=== PATIENT | female | born 1970 | race Two or more races ===

== ENCOUNTER 2024-04-22 10:19 | Outpatient (RCR) | payer MEDICAID, SELFPAY | END 2024-05-07 23:59 | disposition home or self-care (01) | LOC: SCTC 10:19 | PROVIDERS: PCP Physician Assistant; Referring Provider Physician Assistant; Visit Provider Nurse Practitioner Family | DX: D69.6 Thrombocytopenia, unspecified (principal); Z90.81 Acquired absence of spleen; Z86.19 Personal history of other infectious and parasitic diseases | CPT/HCPCS: 99212; G0463 ==

== ENCOUNTER → 2024-05-03 | Outpatient (CLI) | payer MEDICAID, SELFPAY ==
--- NOTE | 2024-05-03 09:00 | XR_ITS ---
Examination: Screening digital mammography, bilateral Computer aided detection 3-D breast Tomosynthesis, bilateral Date and time of exam: May 03, 2024 0913 hours No priors Indication: Screening Technique: Nonmagnified MLO, CC views of the breasts to been obtained, reconstructed from 3-D Tomosynthesis images. R2 computer aided detection program utilized for evaluation of suspicious masses and/or abnormal calcifications. 3-D Tomosynthesis images obtained. Findings: The breasts are heterogeneously dense, which may obscure small masses Benign calcifications No suspicious masses Impression: BI-RADS category II: Benign Findings. Recommend 1 year follow-up mammogram.
== END | disposition home or self-care (01) ==
LOC: CDIM 08:57
PROVIDERS: Referring Provider Specialist; Visit Provider Physician Assistant
DX: Z12.31 Encounter for screening mammogram for malignant neoplasm of breast (principal); R92.323 Mammographic fibroglandular density, bilateral breasts; R92.1 Mammographic calcification found on diagnostic imaging of breast
CPT/HCPCS: 77063; 77067

== ENCOUNTER 2024-06-02 05:27 | Emergency (ER) | payer MEDICAID, SELFPAY ==
[2024-06-02 05:30] VITALS: PULSE 104; RESP 18; O2SAT 99; BMI 18.8
[2024-06-02 05:37] VITALS: BP 107/64; PULSE 90; RESP 18; TEMP 36.9; O2SAT 97
--- NOTE | 2024-06-02 06:20 | XR_ITS ---
Examination: CT brain head without contrast. 2-D sagittal coronal reconstructions Date and time of exam:June 02, 2024 at 0632 hrs. Comparison November 02, 2022 Indications: Onset headache dizziness beginning last night CTDI: vol (mGy):42.6 DLP: (mGycm):835 Technique: Multiple CT axial sections of the brain have been obtained, 5 mm slice thickness. Contrast has not been administered. 2-D sagittal, coronal reconstructions have been obtained Low dose protocols were performed. One or more of the following dose reduction techniques were used; automated exposure control, adjustment of the mA and/or KV according to patient size, use of iterative reconstruction technique. Findings: No significant ventricular enlargement. Intra-axial or extra-axial hemorrhage density is not seen. No mass effect or midline shift Basal cisterns are not remarkable. Fourth ventricle is midline. Cranial vault intact. Impression: Negative for acute hemorrhage, mass effect or midline shift Advise clinical correlation follow-up accordingly
--- NOTE | 2024-06-02 06:21 | XR_ITS ---
Examination: PA lateral chest 2 views Technique: Upright PA lateral chest 2 views Exam date and time: June 02, 2024 0655 hrs. Comparison October 20, 2022 Indications: Chest pain today. Findings: Moderate hyperexpansion. Normal heart size No pneumonia or pulmonary edema Impression: COPD No pneumonia or pulmonary edema
--- NOTE | 2024-06-02 06:21 | PD.EDRME ---
Rapid Medical Screening Exam RME Arrival date/time: 06/02/24 05:27 53-year-old female presents emergency department complains of headache dizziness and chest pain Chief Complaint: Headache Vital signs: Vital Signs Temperature 98.4 F 06/02/24 05:37 Pulse Rate 90 06/02/24 05:37 Respiratory Rate 18 06/02/24 05:37 Blood Pressure 107/64 06/02/24 05:37 Pulse Oximetry (%) 97 06/02/24 05:37 Oxygen Delivery Method Room Air 06/02/24 05:37
[2024-06-02 07:29] LABS: Basophils % (Auto) 1 % (0-2.5); Eosinophils % (Auto) 0 % (0-10); Hematocrit 37.3 % (36.0-46.0); Hemoglobin 12.7 g/dL (12.0-16.0); Immature Granulocytes % (Auto) 0 % (0-0); Immature Granulocytes Auto 0.02 Thou/mm3 (0.00-0.00); Lymphocytes # (Auto) 1.7 Thou/mm3 (1.0-4.8); Lymphocytes % (Auto) 26 % (10-50); Mean Corpuscular Hemoglobin 30.9 pg (25.0-35.0); Mean Corpuscular Volume 91 fL (80-100); Monocytes # (Auto) 0.4 Thou/mm3 (0.0-0.8); Monocytes % (Auto) 6 % (0-12); Neutrophils # (Auto) 4.3 Thou/mm3 (1.8-7.7); Neutrophils % (Auto) 67 % (37-80); Nucleated Red Blood Cell % 0 /100 WBC (0); RDW Standard Deviation 42.3 fL (36.4-46.3); Red Blood Count 4.11 Miln/mm3 (4.00-5.20); White Blood Count 6.4 Thou/mm3 (3.6-11.0)
--- NOTE | 2024-06-02 07:32 | PC.NURSE ---
Patient reports to ED with c/o Headache that worsened after taking THC edible x. Per patient feels I cant turn my mind off, I keep thinking so much . Per patient took edible to see if it would help relax her to get rest. Per patient has insomnia and has had issues with lack of sleeping due to not being able to shut her mind off once she lays to bed. Patient is alert and oriented, able to ambulate without assistance and speaks kazakh. Patient and spouse updated with plan of care and call light within reach.
[2024-06-02 07:36] LABS: Platelet Count 57 Thou/mm3 (140-440)
[2024-06-02 07:46] LABS: B-Type Natriuretic Peptide < 20 pg/mL (0-100)
[2024-06-02 07:54] LABS: Albumin/Globulin Ratio 1.9 (1.2-2.2); Alkaline Phosphatase 41 U/L (46-116); Anion Gap 8 (7-16); Aspartate Amino Transferase 13 U/L (0-34); BUN/Creatinine Ratio 18 Ratio (12-20); Bilirubin,Total 0.4 mg/dL (0.3-1.2); Blood Urea Nitrogen 16 mg/dL (9-23); Calcium 9.8 mg/dL (8.3-10.6); Calcium (Corrected) 9.8 mg/dL (8.5-10.1); Carbon Dioxide 25.2 mMol/L (20.0-31.0); Chloride 107 mMol/L (98-107); Creatinine (Component) 0.9 mg/dL (0.6-1.3); Estimated Creatinine Clearance 56.9 mL/min (>60); Globulin 2.7 gm/dL (2.3-3.5); Glucose 114 mg/dL (74-106); Osmolality,Calculated 281 (275-295); Potassium 3.6 mMol/L (3.4-5.1); Sodium 140 mMol/L (136-145); Total Protein 7.7 gm/dL (5.7-8.2); Troponin I < 0.002 ng/mL (0.0-0.045); eGFR > 60 See Note
[2024-06-02 07:58] LABS: Alanine Aminotransferase 11 U/L (10-49)
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
[2024-06-02 08:33] LABS: Slide Review Platelets confirmed
[2024-06-02 09:00] LABS: INR 1.1 (0.9-1.3); Partial Thromboplastin Time 26.3 Seconds (22.0-36.0); Prothrombin Time 11.5 Seconds (9.0-12.2)
== END 2024-06-02 09:07 | disposition home or self-care (01) ==
PROVIDERS: Nurse Practitioner Primary Care; Emergency Provider Emergency Medicine; PCP Physician Assistant
DX: G40.919 Epilepsy, unspecified, intractable, without status epilepticus (principal); D69.6 Thrombocytopenia, unspecified; F51.04 Psychophysiologic insomnia; R51.9 Headache, unspecified; R42 Dizziness and giddiness; J44.9 Chronic obstructive pulmonary disease, unspecified; R94.31 Abnormal electrocardiogram [ECG] [EKG]; Z85.6 Personal history of leukemia
CPT/HCPCS: 36415; 70450; 71046; 80053; 80307; 81001; 81025; 83735; 83880; 84484; 85025; 85610; 85730; 93005; 99284

== ENCOUNTER 2024-07-02 11:22 | Outpatient (RCR) | payer MEDICAID, SELFPAY ==
--- NOTE | 2024-07-08 09:44 | CTCFLWUP_ITS ---
Patient: DESEAN FARIAS : 1970 Page 3 of 4 FOLLOW UP NOTE DATE OF SERVICE: 07/02/2024 NAME: DESEAN FARIAS ACCOUNT: [id number] : 1970 AGE: 53 INTERVAL HISTORY: Patient in for follow-up for thrombocytopenia. Patient taking Promacta 25 mg daily, refilled by PCP. No bleeding or bruising. 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 HISTORY OF PRESENT ILLNESS: PREVIOUS NOTE: Desean Whittaker, is a 53-year-old Citizen Of [place]- speaking female. Patient reports history of thrombocytopenia. Patient is taking Promacta, refilled by PCP, prior to that last refill was about a year and a half before. Patient is a poor historian. Patient reports that she saw Dr. Patterson, brass burnisher previously, we have not received records. Patient also reports she saw a different brass burnisher prior to that in [facility], does not have contact information, was told that prednisone refill was not indicated. Patient denies any bleeding concerns. Patient reports possible history of unknown type of hepatitis. 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 Total hysterectomy due to heavy menses. 02/18/2014: Platelets 32,000, hemoglobin 14.5, MCV 97, ANC 8.0, WBC 9.9 05/14/2014: Platelets 29,000, hemoglobin 14.0, MCV 92, ANC 9.4, WBC 11.8 06/21/2023: Platelets 57,000, hemoglobin 12.2, hematocrit 37.1, MCV 95, ANC 2.8, WBC 5.8 08/30/2023: Platelets with 75,000, hemoglobin 13.2, MCV 95, ANC 3.6, WBC 6.3, AST 20 ALT 12, alk phos 34, T. bili 0.4 11/13/2023: Platelets 46,000, hemoglobin 13.3, MCV 96, ANC 4.1, WBC 7.0 01/09/2024: Platelets 58,000, hemoglobin 13.5, MCV 97, ANC 2.4, WBC 5.7 OTHER MEDICAL HISTORY/CONDITIONS: Thrombocytopenia Epiliepsy follows up with neurology RA, following up with Dr. Schuster Splenectomy - 9 yrs old [place]; Oscar oophorectomy - 6 yrs ago FAMILY HISTORY: Mother:?Thyroid Patient?denies?family?cancer?history. SOCIAL HISTORY: Occupational?History:?Disabled Education?Level:?Completed High School Marital?Status:? Tobacco?Use:?Denies ETOH?Use:?Denies Drug?Note:?Denies Social?History?Note:?Lives?with?dtr [employer] PRACTITIONER HISTORY: Menarche?-?Age:?10 :?3 Live?Births:?3 Age?1st?:?20 MEDICATIONS: 1. Calcium + D - 600 mg(1,500mg) -200 unit 1 Capsule Daily 2. clonazePAM - 2 mg 1 tab Every day before sleep 3. Keppra - 1,000 mg 1 tab Twice a Day 4. [place] 3 - [id number] mg 1 Capsule Daily 5. Promacta - 25 mg 1 tab Daily 6. topiramate - 100 mg 1 tab Twice a Day Medications Last Reconciled by Linda Avina MA on 07/02/2024 ALLERGIES: Penicillins REVIEW OF SYSTEMS: A complete 14-point review of systems was performed and is negative except as noted in interval history. PHYSICAL EXAMINATION: VITAL SIGNS: Temperature?98.1, B/P?114/64, Oxygen?Saturation?99% Weight?106.6?lbs PAIN: 0 - No pain GENERAL APPEARANCE: Appears well, in no apparent distress, appropriately interactive. HEENT: Normocephalic, no temporal wasting, normal conjunctiva, no scleral icterus, normal hearing, lips without lesions, neck normal range of motion. CARDIOVASCULAR: Not assessed. PULMONARY: Normal respiratory effort, no respiratory distress or use of accessory muscles, speaking in full sentences, no tachypnea. EXTREMITIES: No cyanosis. SKIN: Normal skin appearance. NEUROLOGIC: Alert and oriented x4. PSHYCHIATRIC: Appropriate affect, mood normal, behavior normal, intact thought and speech. LABORATORY DATA: I have personally reviewed and interpreted each of the patient?s relevant lab tests, abnormal findings are below: Date 06/02/24 ??GLUCOSE,RANDOM?(mg/dL) 114?H ??BLOOD?UREA?NITROGEN?(mg/dL) 16 ??CREATININE?(mg/dL) 0.90 ??SODIUM?(mmol/L) 140 ??POTASSIUM?(mmol/L) 3.6 ??CHLORIDE?(mmol/L) 107 ??CrCl?(CandG)?(ml/min) 56.94 ??AST/SGOT?(Unit/L) 13 ??ALT/SGPT?(Unit/L) 11 ??ALKALINE?PHOSPHATASE?(Unit/L) 41?L ??BILIRUBIN,?TOTAL?(mg/dL) 0.4 ??PROTEIN?TOTAL?(gm/dl) 7.7 ??ALBUMIN,?SERUM?(gm/dl) 5.0 ??GLOBULIN?(gm/dl) 2.7 ??ALBUMIN/GLOBULIN?RATIO 1.9 ??CALCIUM,?SERUM?(mg/dL) 9.8 ??CALCIUM?SERUM?(CORRECTED)?(mg/dL) 9.8 ASSESSMENT/PLAN: 1 thrombocytopenia, likely ITP. Hx of promacta use and last dose on 09/14/2023. Patient is asymptomatic, denies any bleeding concerns HCV antibody, reports history of hepatitis C but no active infection Reports splenectomy at the age of 89 years old. Ultrasound of abdomen showed absent spleen, liver normal size no liver lesions, 11/24/2023. Will refer for follow up with hematology benign Dr Arcelia Her No indication for promacta at this time CBC CMP prior to follow-up ORDERS: Cbc,cmp referrel to heme RETURN TO CLINIC: 6 months BILLING AND COMPLIANCE: I reviewed external records from providers outside my specialty as summarized above. I spent a total of 50 minutes on this patient?s care on the day of their visit excluding time spent related to any billed procedures. This time includes time spent with the patient as well as time spent documenting in the medical record, reviewing patients records and tests, obtaining history, placing orders, communicating with other healthcare professionals, counseling the patient, family or caregiver, and/or care coordination for the diagnoses above. Electronically Signed by: Quinn Mcgarry MD T: 9:42 AM CC: PCP: Juan Baker Referring: Juan Baker This document was completed utilizing speech recognition software. Grammatical errors, random word insertions, pronoun errors, and incomplete sentences are an occasional consequence of this system due to software limitations, ambient noise, and hardware issues. Any formal questions or concerns about the content, text or information contained within the body of this dictation should be directly addressed to the provider for clarification.
== END 2024-07-05 23:59 | disposition home or self-care (01) ==
LOC: SCTC 11:22
PROVIDERS: PCP Physician Assistant; Referring Provider Physician Assistant; Visit Provider Internal Medicine Hematology & Oncology
DX: D69.6 Thrombocytopenia, unspecified (principal); Z86.19 Personal history of other infectious and parasitic diseases
CPT/HCPCS: 99213; G0463

== ENCOUNTER → 2024-08-13 | Outpatient (CLI) | payer MEDICAID, SELFPAY ==
--- NOTE | 2024-08-13 14:20 | XR_ITS ---
Examination: Bone densitometry Date and time of exam:August 13, 2024 at 1501 hrs. Indications: Throat knee 843, personal history osteoporosis Technique: Lumbar spine and hip total bone mineralization values of an calculated. Peak reference and age match control results have been displayed. Findings: Lumbar spine total bone mineralization is0.677 gm/cm2. This is 3.4 standard deviations below peak reference. This is 2.4 standard deviations below age-matched controls. Hip total bone mineralization is 0.731 gm/cm2 This is 1.7 standard deviations below peak reference. This is 1 standard deviations below age-matched controls Impression: There is osteoporosis based on lumbar spine measurements. There is osteopenia based on hip measurements Lumbar mineralization is increase 10.1% compared with 01/31/2018 Hip mineralization is increased 9.9% compared with January 31, 2018
== END | disposition home or self-care (01) ==
LOC: CDIM 14:26
PROVIDERS: Referring Provider Internal Medicine Hematology & Oncology; Visit Provider Internal Medicine Hematology & Oncology
DX: M81.0 Age-related osteoporosis without current pathological fracture (principal); M85.89 Other specified disorders of bone density and structure, multiple sites
CPT/HCPCS: 77080

== ENCOUNTER 2024-10-01 11:18 | Outpatient (RCR) | payer MEDICAID, SELFPAY | END 2024-10-05 23:59 | disposition home or self-care (01) | LOC: SCTC 11:18 | PROVIDERS: PCP Physician Assistant; Referring Provider Nurse Practitioner Family; Visit Provider Nurse Practitioner Family | DX: D69.6 Thrombocytopenia, unspecified (principal); M81.0 Age-related osteoporosis without current pathological fracture; Z86.19 Personal history of other infectious and parasitic diseases; Z90.81 Acquired absence of spleen | CPT/HCPCS: 99212; G0463 ==

== ENCOUNTER 2024-11-29 12:48 | Emergency (ER) | payer MEDICAID, SELFPAY ==
[2024-11-29 13:00] VITALS: BP 111/73; PULSE 73; RESP 16; TEMP 36.9; O2SAT 98; BMI 19.7
--- NOTE | 2024-11-29 13:27 | PD.EDEAR ---
ED Ear RME/HPI General Chief complaint: Ear Stated complaint: Ear ringing X 3 months Time Seen by Provider: 11/29/24 12:51 Source: patient Arrival date/time: 11/29/24 12:48 54-year-old female with no known medical history presents to the emergency room with a chief complaint of ringing in her ear x 2 years but has progressively gotten worse in the last 3 months Mode of arrival: ambulatory Limitations: no limitations Related Data Home Medications ?Medication ?Instructions ?Recorded ?Confirmed levetiracetam 500 mg tablet 2,000 mg PO BID Seizures #0 tabs 09/01/14 09/25/22 (Keppra) alendronate 70 mg tablet 70 mg PO QWEEK 09/21/22 09/25/22 cenobamate 12.5 mg (14)-25 mg (14) 1 tab PO QDAY Seizures 09/25/22 09/25/22 tablets in a dose pack Previous Rx's ?Medication ?Instructions ?Recorded diazepam 5 mg/spray (0.1 mL) nasal 5 mg (0.1 mL) intranasal QDAY PRN 09/22/22 spray (Valtoco) seizures #2 sprays polyethylene glycol 3350 17 gram 17 g PO QDAY #30 ea 09/27/22 oral powder packet (Miralax) ofloxacin 0.3 % ear drops 10 drp otic (ear) QDAY 7 days #5 mL 11/29/24 Allergies Allergy/AdvReac Type Severity Reaction Status Date / Time Penicillins Allergy Severe HIVES, Verified 11/29/24 12:52 SEIZURES Review of Systems Review of Systems Systems Reviewed: All systems reviewed, normal except as documented Constitutional Constitutional: Reports system reviewed and no additional complaints, except as documented, Denies fatigue, Denies fever(s), Denies headache(s) and Denies weakness Eyes Eyes: Reports system reviewed and no additional complaints, except as documented, Denies blurry vision and Denies change in vision ENT Ears, Nose, Mouth, and Throat: Reports system reviewed and no additional complaints, except as documented, Denies otalgia, Denies headache(s), Denies nasal congestion, Denies throat swelling, Reports tinnitus and Denies vertigo Cardiovascular Cardiovascular: Reports system reviewed and no additional complaints, except as documented, Denies chest pain, Denies dyspnea and Denies dyspnea on exertion Respiratory Respiratory: Reports system reviewed and no additional complaints, except as documented, Denies chest congestion, Denies cough, Denies dyspnea, Denies dyspnea on exertion and Denies wheezing Gastrointestinal Gastrointestinal: Reports system reviewed and no additional complaints, except as documented, Denies abdominal pain, Denies cramping, Denies nausea and Denies vomiting Genitourinary Genitourinary: Reports system reviewed and no additional complaints, except as documented Musculoskeletal Musculoskeletal: Reports system reviewed and no additional complaints, except as documented and Denies back pain Integumentary/Breasts Skin/Breast: Reports system reviewed and no additional complaints, except as documented and Denies wounds Neurologic Neurologic: Reports system reviewed and no additional complaints, except as documented, Denies confusion, Denies headache(s), Denies lack of coordination, Denies vertigo and Denies weakness Psychiatric Psychiatric: Reports system reviewed and no additional complaints, except as documented, Denies anxiety, Denies confusion, Denies depression, Denies paranoia, Denies suicidal ideation and Denies tactile hallucinations Endocrine Endocrine: Reports system reviewed and no additional complaints, except as documented and Denies fatigue Hematologic/Lymphatic Hematologic/Lymphatic: Reports system reviewed and no additional complaints, except as documented and Denies lymphadenopathy Allergic/Immunologic Allergic/Immunologic: Reports system reviewed and no additional complaints, except as documented, Denies throat swelling, Denies urticaria and Denies wheezing Past Medical History Past Medical History NEUROLOGIC: Positive Neurological Disorders, Seizures and Epilepsy CARDIAC: Positive Hypertension; Negative Cardiac Disorders or Congestive Heart Failure RESPIRATORY: Negative Chronic Obstructive Pulmonary Disease (COPD) or Asthma GASTROINTESTINAL: Positive Gastrointestinal Disorders GENITOURINARY: Negative Renal Disease ENDOCRINE: Negative Diabetes Mellitus Type 1 or Diabetes Mellitus Type 2 HEMATOLOGIC: Positive Blood Disorders; Negative Sickle Cell Disease PSYCHO/SOCIAL: Positive Psychiatric Problems, Depression and Anxiety OTHER HISTORY: Positive Hospitalization, Falls and Blood Transfusions Surgical History SURGICAL: Positive Abdominal Surgery, Hysterectomy and Section Social History SMOKING STATUS: Never smoker SUBSTANCE USE: does not use ED Exam General Limitations: Present no limitations General appearance: Present alert and in no apparent distress Head Head exam: Present atraumatic Eye Eye exam: Present normal appearance, PERRL and EOMI ENT ENT exam: Present normal exam, normal oropharynx, mucous membranes moist, TM's normal bilaterally and normal external ear exam Expanded ENT Exam External ear exam: Present normal external inspection TM/Canal exam: Right TM: erythema Mouth exam: Present normal external inspection Teeth exam: Present normal inspection Neck Neck exam: Present normal inspection, full ROM and trachea midline Chest Chest inspection: Present normal inspection and symmetric chest wall rise Respiratory Respiratory exam: Present normal lung sounds bilaterally Cardiovascular Cardiovascular exam: Present regular rate, normal rhythm and normal heart sounds Abdominal Exam Abdominal exam: Present soft and normal bowel sounds Extremities Exam Extremities exam: Present normal inspection and full ROM Back Exam Back exam: Present normal inspection and full ROM Neurological Exam Neurological exam: Present alert, oriented X3 and CN II-XII intact Psychiatric Psychiatric exam: Present normal affect and normal mood Skin Skin exam: Present warm, dry, intact and normal color Course Quality Measures none Vital Signs Vital signs: Vital Signs Temperature 98.5 F 11/29/24 13:00 Pulse Rate 73 11/29/24 13:00 Respiratory Rate 16 11/29/24 13:00 Blood Pressure 111/73 11/29/24 13:00 Pulse Oximetry (%) 98 11/29/24 13:00 Oxygen Delivery Method Room Air 11/29/24 13:00 Ear MDM Narrative MDM Narrative:: 54-year-old female with no known medical history presents to the emergency room with a chief complaint of ringing in her ear x 2 years but has progressively gotten worse in the last 3 months Patient is hemodynamically stable and in no apparent distress. Patient denies any discharge from her ear any tenderness to her ear. Patient attributes this tendinitis due to her menopause as she says this started around that time. ENT examination shows some mild erythema to the right tympanic membrane but it is not bulging. Left-sided tympanic membrane is within normal limits. Patient states this has been going on for the last 2 years but has progressively gotten worse in the last 3 months. I sent the patient home with some antibiotics and gave her strict return precautions if she begins to have a headache or any focal deficits. Patient denies any headache any confusion any numbness to the face or any other symptoms. The patient was a GCS of 15 she is alert and oriented x 3 pupils are PERRLA EOMs are intact. Patient has a normal steady gait Patient was educated to follow-up with her primary care provider for referral to an ENT specialist. Patient was discharged and educated to follow-up with primary care provider in the next 24 to 48 hours and return to the emergency room for any evidence of worsening signs or symptoms Patient data External records reviewed:: [facility] previous records Clinical information provided by:: patient Social determinants that could affect healthcare access:: none Patient has the following chronic illnesses:: No chronic illness How is presenting disease/condition affected by chronic disease/condition?: no chronic disease Evaluation data The following diagnostics were reviewed and interpreted by me:: lab results and radiology exam(s) Lab and/or radiology exams considered but not ordered:: Labs and radiology exams considered and ordered Interpretation Summary: N/A Medications / Prescriptions Medications or Prescriptions considered but not ordered:: No medication given Medication administrations:: No medication given what Consultations Consultation(s) initiated? (list below): No Diagnosis Ear Differential Diagnosis: otitis externa, otitis media, ruptured TM, cerumen impaction and other (tinitis) Most likely diagnosis given after review of the tests above:: tinitis Admission Indicated Admission indicated?: not indicated Admission Request Was there a request for admission?: No Disposition Plan Disposition Plan: Discharge Discharge Attestation Discharge Attestation: The patient and all family members were given an opportunity to ask questions and understood the discharge instructions. Discharge instructions specifically effects, indications for sooner follow up or return to the emergency department, and the expected course of current diagnosis. Patient condition: Stable Discharge Plan Plan Patient Disposition: HOME (Self Care) Discharge Disposition comment: Stable Prescriptions/Referrals Prescriptions/Med Rec: New ofloxacin 0.3 % drops 10 drp otic (ear) QDAY 7 Days Qty: 5 0RF No Action levetiracetam [Keppra] 500 MG tablet 2,000 mg PO BID Qty: 0 alendronate 70 mg tablet 70 mg PO QWEEK Patient Comments: take 1 tablet by mouth every week Valtoco 5 mg/spray (0.1 mL) spray,non-aerosol 5 mg intranasal QDAY PRN (Reason: seizures) Qty: 2 0RF cenobamate 12.5 mg (14)- 25 mg (14) Tablets,Dose Pack 1 tab PO QDAY Rx Instructions: 12.5 MG PO QDAY new med sample given by Dr. Aysha Garcia polyethylene glycol 3350 [Miralax] 17 gram powder in packet 17 g PO QDAY Qty: 30 0RF Problem List Clinical Impression: Tinnitus of right ear Patient/Caregiver Discharge Instructions Education Materials: Tinnitus (Ringing in the Ears) Additional Instructions: Por favor, consulte con romero m?dico de cabecera en las pr?ximas 24 a 48 horas. Los antibi?ticos se env?an a romero farmacia; rec?jalos y t?melos seg?n lo indicado. Si observa cualquier evidencia de empeoramiento de los signos o s?ntomas, regrese a la geetha de emergencias de inmediato. Print Language: [place] Stand Alone Forms: Lauryn Award Info., Patient Portal Info Letter PA/BIOLOGY RESEARCH ASSISTANT Supervising Physician PA/BIOLOGY RESEARCH ASSISTANT Supervising Physician: Dr. Merrill
== END 2024-11-29 14:04 | disposition home or self-care (01) ==
LOC: SERX 13:25
PROVIDERS: Emergency Provider Nurse Practitioner Family; PCP Physician Assistant
DX: H93.11 Tinnitus, right ear (principal)
CPT/HCPCS: 99282

== ENCOUNTER 2024-12-04 13:00 | Outpatient (RCR) | payer MEDICAID, SELFPAY | END 2024-12-05 23:59 | disposition home or self-care (01) | LOC: SCTC 13:00 | PROVIDERS: PCP Physician Assistant; Referring Provider Physician Assistant; Visit Provider Nurse Practitioner Family | DX: M81.0 Age-related osteoporosis without current pathological fracture (principal); Z86.2 Personal history of diseases of the blood and blood-forming organs and certain disorders involving the immune mechanism | CPT/HCPCS: 96365; A4216; J3489; J7030 ==

== ENCOUNTER 2024-12-11 13:34 | Outpatient (RCR) | payer MEDICAID, SELFPAY | END 2025-01-05 23:59 | disposition home or self-care (01) | LOC: SCTC 13:34 | PROVIDERS: PCP Physician Assistant; Referring Provider Physician Assistant; Visit Provider Nurse Practitioner Family | DX: D69.6 Thrombocytopenia, unspecified (principal); Z86.19 Personal history of other infectious and parasitic diseases; Z90.81 Acquired absence of spleen; M81.0 Age-related osteoporosis without current pathological fracture | CPT/HCPCS: 99212; G0463 ==